=== PATIENT | female | born 1980 | race Two or more races ===

== ENCOUNTER 2024-07-27 08:17 | Outpatient (CLI) | payer OTHER | END 2024-07-27 08:25 | disposition home or self-care (01) | LOC: MAMO-SONO 08:17 | DX: Z12.31 Encounter for screening mammogram for malignant neoplasm of breast (principal) ==

== ENCOUNTER 2024-11-03 08:07 | Outpatient (CLI) | payer OTHER | END 2024-11-03 08:12 | disposition home or self-care (01) | LOC: SONOGRAMA 08:07 | PROVIDERS: ATTEND Obstetrics & Gynecology Obstetrics | DX: R10.2 Pelvic and perineal pain (principal) ==